=== PATIENT | female | born 1985 | race Caucasian/White ===

== ENCOUNTER 2023-05-23 06:33 | Inpatient (IN) ==
[2023-05-23] MEDS ORDERED: BETADINE SOLN ONE (06:48)
[2023-05-23] MEDS ORDERED: D5 1/2 NS 1,000 ML 1,000 ML IV ONE (06:48)
[2023-05-23] MEDS ORDERED: PITOCIN ONE (06:48)
[2023-05-23] MEDS ORDERED: REGLAN INJ 10 MG VIAL IVP PRN (06:49)
[2023-05-23] MEDS ORDERED: STADOL INJ IVP PRN (06:49)
[2023-05-23] MEDS ORDERED: NUBAIN INJ 20 MG AMP IVP PRN (06:49)
[2023-05-23] MEDS ORDERED: D5 LR + PITOCIN 10 UNITS/L 10 UNITS/1,000 ML BAG IV PRN (06:49)
[2023-05-23] MEDS ORDERED: D5 1/2 NS 1,000 ML 1,000 ML IV SCH (06:49)
[2023-05-23] MEDS ORDERED: ZOFRAN INJ 4 MG VIAL IVP PRN (06:49)
[2023-05-23] MEDS ORDERED: PITOCIN IVP ONE (06:49)
[2023-05-23] MEDS ORDERED: D5 1/2 NS 1,000 mL + PITOCIN 20 UNITS/L IV 20 UNITS/1,000 ML BAG IV ONE (06:50)
[2023-05-23] MEDS ORDERED: D5 LR + PITOCIN 10 UNITS/L 10 UNITS/1,000 ML BAG IV ONE (06:50)
[2023-05-23 07:17] LABS: BILIRUBIN,URINE NEGATIVE (NEGATIVE); BLOOD/HEMOGLOBIN,URINE 1+ (NEGATIVE); GLUCOSE, URINE NEGATIVE (NEGATIVE); KETONES,URINE NEGATIVE (NEGATIVE); LEUKOCYTE ESTERASE ,URINE 2+ (NEGATIVE); NITRITES,URINE NEGATIVE (NEGATIVE); PH,URINE 6.5 (5.0 - 8.0); PROTEIN,URINE 2+ (NEGATIVE); UROBILINOGEN,URINE NORMAL (NORMAL)
--- NOTE | 2023-05-23 07:17 | DR.OB ---
OB Quick Note - Assessment/Plan Assessment/Plan: L&D 05/23/23 at 7:05am S-No complaint. O-Afebrile,VSS SST=318 with good LTV, +accel, no decel. CTX=none CVX=3cm/50%/0/VTX AROM with clear fluid. IUPC and FSE placed. A-IUP at 39 0/7 weeks for induction P-Begin pitocin induction Anticipate
[2023-05-23 07:20] LABS: BASOPHILS % (AUTO) 0.3 % (0.2-1.0); EOSINOPHILS % (AUTO) 0.4 % (0.9-2.9); HEMATOCRIT 28.6 % (36.0-47.0); HEMOGLOBIN 9.5 g/dL (12.0-16.0); LYMPHOCYTES # (AUTO) 2.3 X10^3/uL (1.3-2.9); LYMPHOCYTES % (AUTO) 26.2 % (21.0-51.0); MEAN CORPUSCULAR HEMOGLOBIN 25.4 pg (27.0-34.0); MEAN CORPUSCULAR HGB CONC 33.3 g/dL (33.0-35.0); MEAN CORPUSCULAR VOLUME 76.2 fL (80.0-100.0); MEAN PLATELET VOLUME 7.5 fL (7.4-11.0); MONOCYTES # (AUTO) 0.8 x10^3/uL (0.3-0.8); MONOCYTES % (AUTO) 8.9 % (0.0-13.0); NEUTROPHILS # (AUTO) 5.5 x10^3/uL (2.2-4.8); NEUTROPHILS % (AUTO) 64.2 % (42.0-75.0); PLATELET COUNT 405 X10^3/uL (150.0-450.0); RED BLOOD COUNT 3.76 X10^6/uL (3.5-5.4); RED CELL DISTRIBUTION WIDTH 13.9 % (11.6-16.5); WHITE BLOOD COUNT 8.6 X10^3/uL (3.6-10.0)
[2023-05-23 07:26] LABS: COLOR,URINE YELLOW (YELLOW)
[2023-05-23 07:27] LABS: APPEARANCE,URINE HAZY (CLEAR); BACTERIA,URINE 1+ /HPF (NEGATIVE); RBC,URINE 0-2 /HPF (0-3); SQUAMOUS EPITHELIAL CELL,UR NUMEROUS /HPF (NEGATIVE)
[2023-05-23 07:29] LABS: ALANINE AMINOTRANSFERASE 8 Units/L (12-78); ALBUMIN 2.8 g/dL (3.4-5.0); ALKALINE PHOSPHATASE 157 Units/L (46-116); ASPARTATE AMINO TRANSFERASE 12 Units/L (15-37); BLOOD UREA NITROGEN 5 mg/dL (7-18); CARBON DIOXIDE 25.8 mmol/L (21-32); CHLORIDE 102 mmol/L (98-107); CREATININE 0.65 mg/dL (0.55-1.02); GLUCOSE 82 mg/dL (65-99); POTASSIUM 3.8 mmol/L (3.5-5.1); SODIUM 136 mmol/L (136-145); TOTAL PROTEIN 6.3 g/dL (6.4-8.2); eGFR NON BLACK RACES > 60 (>60)
[2023-05-23] MEDS ORDERED: LR 1,000 ML IV 1,000 ML IV ONE (09:48)
[2023-05-23] MEDS ORDERED: FENTANYL VIAL INJ 100 mcg ONE (09:51)
[2023-05-23] MEDS ORDERED: NAROPIN EPIDURAL 0.2% 100 ML ONE (09:52)
[2023-05-23] MEDS ORDERED: MOTRIN TAB 800 MG PO PRN (11:52)
[2023-05-23] MEDS: D5 1/2 NS 1,000 ML 1,000 ML with PITOCIN 20 UNITS IV SCH ×6 (12:39→21:25)
--- NOTE | 2023-05-23 17:04 | DR.OB ---
OB Quick Note - Assessment/Plan Assessment/Plan: Delivery Note [employer] 05/23/23 at 11:44am Patient complete and pushing. Head delivered by over intact perineum. Nose and mouth bulb suctioned. Nuchal cord x 1 reduced. Body delivered over intact perineum. Cord clamped x 2 and cut. Infant handed to attendant. Cord sent for gases. Placenta delivered spontaneously / intact / 3 vessel cord. No CVX / vaginal / perineal tears. Viable female , VTX/OA, wt=6'4" and 9/9, stable to NBN. Mother stable to RR. NZH=[id number].
[2023-05-24 04:27] VITALS: O2SAT 100
[2023-05-24 05:35] LABS: HEMATOCRIT 25.5 % (36.0-47.0); HEMOGLOBIN 8.6 g/dL (12.0-16.0)
[2023-05-24] MEDS: D5 1/2 NS 1,000 ML 1,000 ML with PITOCIN 20 UNITS IV SCH ×2 (05:59)
[2023-05-24 08:28] VITALS: RESP 20
[2023-05-24 14:01] VITALS: BP 108/70; PULSE 83; TEMP 97.9
== END 2023-05-24 14:30 | disposition home or self-care (01) | DRG 806 ==
LOC: LD 06:33 → MED/SURG 13:36
PROVIDERS: ADMIT Specialist; ATTEND Specialist